=== PATIENT | female | born 1955 | race Caucasian/White ===

== ENCOUNTER 2020-11-19 15:10 | Inpatient (IN) | payer OTHER ==
[2020-11-19 15:50] VITALS: BMI 30.7
[2020-11-19] MEDS ORDERED: SODIUM CHLORIDE 0.9% 500 ML INFUS.BAG IV ONE (16:37)
[2020-11-19] MEDS ORDERED: ACETAMINOPHEN 1000 MG/100 ML VIAL (NON FORMULARY) IVPB ONE (16:37)
[2020-11-19] MEDS ORDERED: ACETAMINOPHEN INJECTION 100 ML IVPB ONE (16:48)
[2020-11-19 17:51] LABS: BASO % 0.6 % (0-2.0); EOS % 1.5 % (0-4.5); HEMATOCRIT 36.8 % (32.4-45.2); HEMOGLOBIN 12.6 GM/dL (10.7-15.3); LYMPH % 23.4 % (8-40); MCH 29.4 pg (25.7-33.7); MCHC 34.1 g/dl (32.0-36.0); MEAN CELL VOLUME 86.4 fl (80-96); MEAN PLT VOLUME 8.9 fl (7.5-11.1); MONO % 6.2 % (3.8-10.2); NEUT % 68.3 % (42.8-82.8); PLATELET COUNT 274 10^3/uL (134-434); RBC 4.27 M/mm3 (3.60-5.2); RDW 13.7 % (11.6-15.6); WHITE BLOOD COUNT 8.6 K/mm3 (4.0-10.0)
[2020-11-19 18:10] LABS: CHLORIDE 106 mmol/L (98-107); SODIUM 139 mmol/L (136-145)
[2020-11-19 18:12] LABS: ALBUMIN 3.5 g/dl (3.4-5.0); ANION GAP 10 MMOL/L (8-16); BLOOD UREA NITROGEN 14.5 mg/dL (7-18); CALCIUM 8.5 mg/dL (8.5-10.1); CO2 23 mmol/L (21-32)
[2020-11-19 18:13] LABS: GLUCOSE,RANDOM 137 mg/dL (74-106)
[2020-11-19 18:15] LABS: SGOT/AST 70 U/L (15-37); SGPT/ALT 75 U/L (13-61)
[2020-11-19 18:16] LABS: CREATININE 0.6 mg/dL (0.55-1.3)
[2020-11-19 18:17] LABS: BILIRUBIN,TOTAL 0.4 mg/dL (0.2-1); TOT PROT 7.7 g/dl (6.4-8.2)
[2020-11-19 18:18] LABS: ALK PHOS 156 U/L (45-117)
[2020-11-19 21:22] LABS: URINE APPEARANCE CLEAR; URINE BILIRUBIN NEGATIVE (NEGATIVE); URINE COLOR YELLOW; URINE GLUCOSE (UA) NEGATIVE (NEGATIVE); URINE KETONE NEGATIVE (NEGATIVE); URINE LEUK ESTERASE NEGATIVE (NEGATIVE); URINE NITRITE NEGATIVE (NEGATIVE); URINE PROTEIN NEGATIVE (NEGATIVE); URINE UROBILINOGEN 0.2 mg/dL (0.2-1.0)
[2020-11-19] MEDS ORDERED: ATORVASTATIN CA 40 MG TABLET (FP) ONE (22:57)
[2020-11-19] MEDS: ATORVASTATIN CA 40 MG TABLET (FP) PO SCH (23:00)
[2020-11-19 23:46] LABS: MAGNESIUM 2.3 mg/dL (1.8-2.4)
[2020-11-19 23:50] LABS: CHOLESTEROL 240 mg/dL (50-200); PHOSPHOROUS 3.8 mg/dL (2.5-4.9); TRIGLYCERIDES 345 mg/dL (0-150)
[2020-11-19 23:51] LABS: LDL CHOLESTEROL (ONLY SJRH) 148 mg/dL (5-100)
[2020-11-19 23:52] LABS: HDL CHOLESTEROL 43 mg/dL (40-60)
[2020-11-20 06:29] LABS: BASO % 0.8 % (0-2.0); EOS % 2.6 % (0-4.5); HEMOGLOBIN 11.6 GM/dL (10.7-15.3); LYMPH % 29.2 % (8-40); MCH 29.4 pg (25.7-33.7); MCHC 34.2 g/dl (32.0-36.0); MEAN CELL VOLUME 85.8 fl (80-96); MEAN PLT VOLUME 8.2 fl (7.5-11.1); NEUT % 61.4 % (42.8-82.8); PLATELET COUNT 238 10^3/uL (134-434); RBC 3.96 M/mm3 (3.60-5.2); RDW 13.6 % (11.6-15.6); WHITE BLOOD COUNT 6.7 K/mm3 (4.0-10.0)
[2020-11-20] MEDS ORDERED: oxyCODONE HCL 5 MG TABLET PO ONE (06:36)
[2020-11-20] MEDS ORDERED: oxyCODONE HCL 5 MG TABLET ONE (06:45)
[2020-11-20 06:52] LABS: MAGNESIUM 2.1 mg/dL (1.8-2.4)
[2020-11-20 06:53] LABS: CALCIUM 8.5 mg/dL (8.5-10.1)
[2020-11-20 06:54] LABS: ALBUMIN 3.1 g/dl (3.4-5.0); BLOOD UREA NITROGEN 11.8 mg/dL (7-18)
[2020-11-20 06:55] LABS: CREATININE 0.6 mg/dL (0.55-1.3)
[2020-11-20 06:57] LABS: PHOSPHOROUS 3.8 mg/dL (2.5-4.9)
[2020-11-20 06:58] LABS: BILIRUBIN,TOTAL 0.7 mg/dL (0.2-1)
[2020-11-20] MEDS: INSULIN SLIDING SCALE (NOVOLOG) 1 VIAL SQ SCH ×4 (07:17→21:45)
[2020-11-20] MEDS: LOSARTAN POTASSIUM 50 MG TABLET PO SCH (09:47)
[2020-11-20] MEDS: ENOXAPARIN NA (PORCINE) 40 MG/0.4 ML DISP.SYRIN SQ SCH (09:47)
[2020-11-20] MEDS: EZETIMIBE 10 MG TABLET (FP) PO SCH (09:47)
[2020-11-20 12:01] LABS: HEPATITIS B SURFACE AG MATERN NON-REACTIVE (NONREACTIVE)
[2020-11-20] MEDS: ATORVASTATIN CA 40 MG TABLET (FP) PO SCH (21:45)
[2020-11-21] MEDS: INSULIN SLIDING SCALE (NOVOLOG) 1 VIAL SQ SCH ×4 (06:29→21:11)
[2020-11-21] MEDS ORDERED: metFORMIN HCL 500 MG TABLET (FP) PO SCH (07:00)
[2020-11-21 07:50] LABS: BASO % 0.3 % (0-2.0); EOS % 2.2 % (0-4.5); HEMATOCRIT 34.6 % (32.4-45.2); LYMPH % 26.7 % (8-40); MCH 30.1 pg (25.7-33.7); MCHC 34.7 g/dl (32.0-36.0); MEAN CELL VOLUME 86.7 fl (80-96); MEAN PLT VOLUME 8.8 fl (7.5-11.1); MONO % 5.6 % (3.8-10.2); NEUT % 65.2 % (42.8-82.8); PLATELET COUNT 251 10^3/uL (134-434); RDW 13.7 % (11.6-15.6); WHITE BLOOD COUNT 6.6 K/mm3 (4.0-10.0)
[2020-11-21 08:08] LABS: BLOOD UREA NITROGEN 12.4 mg/dL (7-18)
[2020-11-21 08:09] LABS: ALBUMIN 3.1 g/dl (3.4-5.0); CALCIUM 8.3 mg/dL (8.5-10.1); MAGNESIUM 2.2 mg/dL (1.8-2.4)
[2020-11-21 08:10] LABS: CREATININE 0.5 mg/dL (0.55-1.3)
[2020-11-21 08:11] LABS: PHOSPHOROUS 4.3 mg/dL (2.5-4.9)
[2020-11-21 08:13] LABS: BILIRUBIN,TOTAL 0.5 mg/dL (0.2-1); TOT PROT 6.9 g/dl (6.4-8.2)
[2020-11-21] MEDS: LOSARTAN POTASSIUM 50 MG TABLET PO SCH (09:39)
[2020-11-21] MEDS: ENOXAPARIN NA (PORCINE) 40 MG/0.4 ML DISP.SYRIN SQ SCH (09:39)
[2020-11-21] MEDS: EZETIMIBE 10 MG TABLET (FP) PO SCH (09:39)
[2020-11-21] MEDS: PATIENT'S OWN MEDICATION (NON-FORMULARY) (Lifitegrast [Xiidra] 1 EACH Droperette) OU SCH ×3 (18:29→18:31)
[2020-11-21] MEDS: ATORVASTATIN CA 40 MG TABLET (FP) PO SCH (21:06)
[2020-11-21] MEDS ORDERED: LIFITEGRAST OU SCH (22:00)
[2020-11-22] MEDS: INSULIN SLIDING SCALE (NOVOLOG) 1 VIAL SQ SCH ×4 (06:19→21:14)
[2020-11-22] MEDS: LOSARTAN POTASSIUM 50 MG TABLET PO SCH (09:49)
[2020-11-22] MEDS: EZETIMIBE 10 MG TABLET (FP) PO SCH (09:49)
[2020-11-22] MEDS: ENOXAPARIN NA (PORCINE) 40 MG/0.4 ML DISP.SYRIN SQ SCH (09:50)
[2020-11-22 10:00] LABS: BASO % 0.5 % (0-2.0); EOS % 2.2 % (0-4.5); HEMATOCRIT 35.1 % (32.4-45.2); LYMPH % 27.3 % (8-40); MCH 29.4 pg (25.7-33.7); MEAN CELL VOLUME 86.5 fl (80-96); MEAN PLT VOLUME 8.5 fl (7.5-11.1); MONO % 5.9 % (3.8-10.2); NEUT % 64.1 % (42.8-82.8); PLATELET COUNT 243 10^3/uL (134-434); RBC 4.06 M/mm3 (3.60-5.2); RDW 13.2 % (11.6-15.6); WHITE BLOOD COUNT 7.1 K/mm3 (4.0-10.0)
[2020-11-22 10:17] LABS: CALCIUM 8.6 mg/dL (8.5-10.1)
[2020-11-22 10:18] LABS: ALBUMIN 3.2 g/dl (3.4-5.0); BLOOD UREA NITROGEN 13.5 mg/dL (7-18); MAGNESIUM 2.3 mg/dL (1.8-2.4)
[2020-11-22 10:21] LABS: CREATININE 0.6 mg/dL (0.55-1.3); PHOSPHOROUS 4.3 mg/dL (2.5-4.9)
[2020-11-22 10:22] LABS: BILIRUBIN,TOTAL 0.5 mg/dL (0.2-1)
[2020-11-22] MEDS: ACETAMINOPHEN 325 MG TABLET (FP) PO PRN ×2 (11:38→17:54)
[2020-11-22] MEDS ORDERED: INSULIN (NOVOLOG) ASPART 100 UNITS/ML 10ML VIAL ONE (17:09)
[2020-11-22] MEDS: ATORVASTATIN CA 40 MG TABLET (FP) PO SCH (21:13)
[2020-11-23] MEDS: INSULIN SLIDING SCALE (NOVOLOG) 1 VIAL SQ SCH ×4 (06:04→21:02)
[2020-11-23 08:28] LABS: BASO % 0.6 % (0-2.0); EOS % 2.6 % (0-4.5); HEMATOCRIT 35.2 % (32.4-45.2); HEMOGLOBIN 11.9 GM/dL (10.7-15.3); LYMPH % 28.7 % (8-40); MCH 29.3 pg (25.7-33.7); MCHC 33.9 g/dl (32.0-36.0); MEAN CELL VOLUME 86.6 fl (80-96); MEAN PLT VOLUME 8.6 fl (7.5-11.1); MONO % 5.2 % (3.8-10.2); NEUT % 62.9 % (42.8-82.8); PLATELET COUNT 253 10^3/uL (134-434); RBC 4.06 M/mm3 (3.60-5.2); RDW 13.2 % (11.6-15.6); WHITE BLOOD COUNT 6.2 K/mm3 (4.0-10.0)
[2020-11-23 08:49] LABS: BLOOD UREA NITROGEN 11.6 mg/dL (7-18); CALCIUM 8.6 mg/dL (8.5-10.1)
[2020-11-23 08:50] LABS: ALBUMIN 3.2 g/dl (3.4-5.0); MAGNESIUM 2.3 mg/dL (1.8-2.4)
[2020-11-23 08:53] LABS: CREATININE 0.5 mg/dL (0.55-1.3); PHOSPHOROUS 3.9 mg/dL (2.5-4.9)
[2020-11-23 08:54] LABS: BILIRUBIN,TOTAL 0.4 mg/dL (0.2-1); TOT PROT 6.9 g/dl (6.4-8.2)
[2020-11-23] MEDS: ENOXAPARIN NA (PORCINE) 40 MG/0.4 ML DISP.SYRIN SQ SCH (09:50)
[2020-11-23] MEDS: EZETIMIBE 10 MG TABLET (FP) PO SCH (09:50)
[2020-11-23] MEDS: LOSARTAN POTASSIUM 50 MG TABLET PO SCH (09:50)
[2020-11-23] MEDS: CEPHALEXIN MONOHYDRATE 500 MG CAPSULE (UD) PO SCH (17:21)
[2020-11-23] MEDS: ATORVASTATIN CA 40 MG TABLET (FP) PO SCH (21:02)
[2020-11-24] MEDS: CEPHALEXIN MONOHYDRATE 500 MG CAPSULE (UD) PO SCH ×4 (01:03→17:28)
[2020-11-24] MEDS: INSULIN SLIDING SCALE (NOVOLOG) 1 VIAL SQ SCH ×4 (06:13→21:20)
[2020-11-24 08:34] LABS: BASO % 0.8 % (0-2.0); EOS % 2.6 % (0-4.5); HEMATOCRIT 34.8 % (32.4-45.2); LYMPH % 29.2 % (8-40); MCH 30.1 pg (25.7-33.7); MCHC 34.4 g/dl (32.0-36.0); MEAN CELL VOLUME 87.5 fl (80-96); MEAN PLT VOLUME 8.4 fl (7.5-11.1); MONO % 5.2 % (3.8-10.2); NEUT % 62.2 % (42.8-82.8); PLATELET COUNT 279 10^3/uL (134-434); RBC 3.98 M/mm3 (3.60-5.2); RDW 13.7 % (11.6-15.6)
[2020-11-24 08:54] LABS: CALCIUM 8.8 mg/dL (8.5-10.1)
[2020-11-24 08:55] LABS: ALBUMIN 3.3 g/dl (3.4-5.0)
[2020-11-24 08:58] LABS: CREATININE 0.6 mg/dL (0.55-1.3)
[2020-11-24 09:00] LABS: BILIRUBIN,TOTAL 0.6 mg/dL (0.2-1); TOT PROT 6.9 g/dl (6.4-8.2)
[2020-11-24] MEDS: ACETAMINOPHEN 325 MG TABLET (FP) PO PRN (10:18)
[2020-11-24] MEDS: LOSARTAN POTASSIUM 50 MG TABLET PO SCH (10:19)
[2020-11-24] MEDS: EZETIMIBE 10 MG TABLET (FP) PO SCH (10:19)
[2020-11-24] MEDS: ENOXAPARIN NA (PORCINE) 40 MG/0.4 ML DISP.SYRIN SQ SCH (10:19)
[2020-11-24] MEDS: ATORVASTATIN CA 40 MG TABLET (FP) PO SCH (21:17)
[2020-11-25] MEDS: CEPHALEXIN MONOHYDRATE 500 MG CAPSULE (UD) PO SCH ×5 (01:00→23:45)
[2020-11-25] MEDS: INSULIN SLIDING SCALE (NOVOLOG) 1 VIAL SQ SCH ×4 (06:02→21:00)
[2020-11-25] MEDS: EZETIMIBE 10 MG TABLET (FP) PO SCH (09:38)
[2020-11-25] MEDS: ENOXAPARIN NA (PORCINE) 40 MG/0.4 ML DISP.SYRIN SQ SCH (09:38)
[2020-11-25] MEDS: LOSARTAN POTASSIUM 50 MG TABLET PO SCH (09:38)
[2020-11-25] MEDS: ACETAMINOPHEN 325 MG TABLET (FP) PO PRN (09:41)
[2020-11-25 12:43] LABS: BASO % 0.8 % (0-2.0); EOS % 2.5 % (0-4.5); HEMATOCRIT 36.6 % (32.4-45.2); HEMOGLOBIN 12.6 GM/dL (10.7-15.3); LYMPH % 26.6 % (8-40); MCHC 34.5 g/dl (32.0-36.0); MEAN PLT VOLUME 8.6 fl (7.5-11.1); MONO % 4.7 % (3.8-10.2); NEUT % 65.4 % (42.8-82.8); PLATELET COUNT 293 10^3/uL (134-434); RDW 13.4 % (11.6-15.6); WHITE BLOOD COUNT 6.4 K/mm3 (4.0-10.0)
[2020-11-25 13:03] LABS: CALCIUM 9.1 mg/dL (8.5-10.1)
[2020-11-25 13:04] LABS: ALBUMIN 3.5 g/dl (3.4-5.0); BLOOD UREA NITROGEN 11.7 mg/dL (7-18)
[2020-11-25 13:07] LABS: CREATININE 0.6 mg/dL (0.55-1.3)
[2020-11-25 13:08] LABS: BILIRUBIN,TOTAL 0.4 mg/dL (0.2-1); TOT PROT 7.6 g/dl (6.4-8.2)
[2020-11-25] MEDS: ATORVASTATIN CA 40 MG TABLET (FP) PO SCH (21:00)
[2020-11-26] MEDS: CEPHALEXIN MONOHYDRATE 500 MG CAPSULE (UD) PO SCH ×2 (05:40→12:18)
[2020-11-26] MEDS: INSULIN SLIDING SCALE (NOVOLOG) 1 VIAL SQ SCH ×2 (06:07→12:14)
[2020-11-26] MEDS: LOSARTAN POTASSIUM 50 MG TABLET PO SCH (10:45)
[2020-11-26] MEDS: ENOXAPARIN NA (PORCINE) 40 MG/0.4 ML DISP.SYRIN SQ SCH (10:45)
[2020-11-26] MEDS: EZETIMIBE 10 MG TABLET (FP) PO SCH (10:45)
[2020-11-26 15:51] VITALS: BP 146/80; PULSE 80; TEMP 98.2
== END 2020-11-26 17:41 | disposition short-term general hospital (02) | DRG 58 ==
LOC: JER 15:10 → JERBED 20:21 → INTOOBSV 20:21 → OBSVTOIN 22:58 → J2W 11-20 08:51 → J8W 11-21 17:08
PROVIDERS: ADMIT Internal Medicine; ATTEND Internal Medicine
DX: I67.1 Cerebral aneurysm, nonruptured (principal); R55 Syncope and collapse; E11.9 Type 2 diabetes mellitus without complications; R19.7 Diarrhea, unspecified; S82.832A Other fracture of upper and lower end of left fibula, initial encounter for closed fracture; W18.39XA Other fall on same level, initial encounter; G40.909 Epilepsy, unspecified, not intractable, without status epilepticus; B19.10 Unspecified viral hepatitis B without hepatic coma; K75.9 Inflammatory liver disease, unspecified; N39.0 Urinary tract infection, site not specified; R16.0 Hepatomegaly, not elsewhere classified; R74.01 Elevation of levels of liver transaminase levels; E78.5 Hyperlipidemia, unspecified; G56.02 Carpal tunnel syndrome, left upper limb; E66.9 Obesity, unspecified; Z68.30 Body mass index [BMI] 30.0-30.9, adult; I10 Essential (primary) hypertension; M77.9 Enthesopathy, unspecified; R94.5 Abnormal results of liver function studies; R29.6 Repeated falls; E04.1 Nontoxic single thyroid nodule; K76.0 Fatty (change of) liver, not elsewhere classified
CPT/HCPCS: 36415; 70450-TC; 70546-TC; 70551-TC; 71045-TC-FY; 72125-TC; 73610-TC-LT-FY; 73630-TC-LT; 74174-TC; 76700-TC; 80053; 80061; 80307; 81003; 82550; 82962; 82977; 83036; 83540; 83550; 83735; 84100; 84443; 84484; 85025; 86140; 86704; 86705; 86706; 86708; 86709; 86803; 87086; 87186; 87340; 87517; 87522; 93005; 93010; 93306-TC; 93880-TC; 95816; 97116-GP; 97161-GP; 99285-25; A9579; C9803; G0378; J0131; U0003; U0005